=== PATIENT | female | born 1955 | race Caucasian/White ===

== ENCOUNTER 2023-03-30 22:28 | Emergency (ER) | payer MEDICAID ==
[~2023-03-30] VITALS: Ht 165.1 cm; Wt 72.6 kg
--- NOTE | 2023-03-30 22:30 | NUR ---
PT [facility] BED 2
[2023-03-30 22:32] VITALS: BP 124/74
[2023-03-30] MEDS ORDERED: NACL 0.9% 1,000 ML IV ONE (22:55)
[2023-03-30] MEDS ORDERED: INSULIN REGULAR, HUMAN 100 UNIT/ML VIAL IVP ONE (22:55)
[2023-03-30 23:31] LABS: BASOPHILS % (AUTO) 0.4 % (0.0-2.0); EOSINOPHILS # (AUTO) 0.1 K/uL (0-0.4); HEMATOCRIT 38.8 % (36-48); HEMOGLOBIN 13.4 g/dL (12.0-16.0); LYMPHOCYTES # (AUTO) 2.5 K/uL (2.5-16.5); LYMPHOCYTES % (AUTO) 44.6 % (20.5-51.1); MEAN CORPUSCULAR HEMOGLOBIN 29 pg (27-31); MEAN CORPUSCULAR HGB CONC 35 g/dL (33-37); MEAN CORPUSCULAR VOLUME 84.9 fL (80-94); MONOCYTES # (AUTO) 0.3 K/uL (0.8-1.0); MONOCYTES % (AUTO) 4.6 % (1.7-9.3); NEUTROPHILS # (AUTO) 2.7 K/uL (1.8-7.7); NEUTROPHILS % (AUTO) 48.4 % (42.2-75.2); PLATELET COUNT (AUTO) 186 K/uL (140-450); RED BLOOD CELL COUNT(AUTO) 4.57 MIL/uL (4.20-5.40); RED CELL DISTRIBUTION WIDTH 13.3 % (11.6-13.7); WHITE BLOOD COUNT (AUTO) 5.6 K/uL (4.8-10.8)
--- NOTE | 2023-03-30 23:49 | NUR ---
67 Y/O M BIB AMBULANCE AFTER FALL AND HYPERGLYCEMIA. PT IS ETOH. PT IS AXO2. COMPLAINTS OF HEADACHE AND RIGHT SHOULDER PAIN S/P FALL. -KO. PT ON BEDSIDE MONITOR. HOB ELEVATED. BLOOD SUGAR 518 UPON ARRIVAL. DAUGHTER AT BEDSIDE. PT [place] SPEAKING ONLY. NKDA DM
[2023-03-30 23:51] LABS: ALBUMIN 3.8 g/dL (3.4-5.0); ANION GAP 15.8 (8-16); CARBON DIOXIDE 25.8 mmol/L (21-32); CREATININE 1.2 mg/dL (0.6-1.3); POTASSIUM 4.6 mmol/L (3.5-5.1); TOTAL BILIRUBIN 0.4 mg/dL (0.0-1.0)
[2023-03-31] MEDS ORDERED: NACL 0.9% 1,000 ML IV ONE (00:50)
[2023-03-31] MEDS ORDERED: INSULIN REGULAR, HUMAN 100 UNIT/ML VIAL IVP ONE (00:50)
--- NOTE | 2023-03-31 01:49 | NUR ---
PT RESTING IN BED RESP EVEN AND UNLABORED. ACCU CHECK 291. PT ON BEDSIDE PRODUCT MGR. DAUGHTER LEFT
--- NOTE | 2023-03-31 01:50 | NUR ---
[facility] [phone]. CALL DAUGHTER WHEN PT DC
[2023-03-31 03:11] VITALS: BP 126/75
--- NOTE | 2023-03-31 03:11 | NUR ---
Patient discharged with v/s stable. Written and verbal after care instructions given and explained. Patient verbalized understanding. Ambulatory with steady gait. All questions addressed prior to discharge. Advised to follow up with PMD.
== END 2023-03-31 03:11 | disposition home or self-care (01) ==
LOC: MED 22:28
DX: E11.649 Type 2 diabetes mellitus with hypoglycemia without coma (principal); F10.129 Alcohol abuse with intoxication, unspecified; I10 Essential (primary) hypertension; Z79.4 Long term (current) use of insulin; Z79.899 Other long term (current) drug therapy; Y90.9 Presence of alcohol in blood, level not specified
CPT/HCPCS: 36415; 71045; 80053; 83880; 84484; 85025; 85379; 93005; 96361; 96374; 96376; 99285; G0482; J1815; J7030; Q0092